=== PATIENT | female | born 1985 | race Caucasian/White ===

== ENCOUNTER → 2016-04-13 | Outpatient (REF) | payer OTHER | LOC: M SFHCCLAY 09:07 | PROVIDERS: ATTEND Family Medicine | DX: N30.00 Acute cystitis without hematuria (principal) ==

== ENCOUNTER 2016-05-02 12:32 | Emergency (ER) | payer OTHER ==
[2016-05-02 14:13] LABS: BASO % 0.3 % (0.0-1.0); EOS % 0.9 % (0.0-3.0); LARGE UNSTAINED CELL # 0.1 K/mm3 (0.0-0.4); LARGE UNSTAINED CELL % 1.6 % (0.0-4.0); LYMPH # 1.4 K/mm3 (1.5-4.5); MEAN CORPUSCULAR HEMOGLOBIN 32.6 pg (27.0-33.0); MEAN CORPUSCULAR HGB CONC 34.8 g/dl (32.0-36.5); MEAN CORPUSCULAR VOLUME 93.6 fl (80.0-96.0); MONO # 0.3 K/mm3 (0.0-0.8); MONO % 4.7 % (0.0-5.0); NEUTROPHILS # 4.3 K/mm3 (1.8-7.7); NEUTROPHILS % 70.5 % (36.0-66.0); PLATELET COUNT, AUTOMATED 295 k/mm3 (150-450); RED CELL DISTRIBUTION WIDTH 13.4 % (11.5-14.5)
[2016-05-02 14:23] LABS: ANION GAP 8 MEQ/L (8-16); BLOOD UREA NITROGEN 6 MG/DL (7-18); CALCIUM LEVEL 8.3 MG/DL (8.5-10.1); CARBON DIOXIDE LEVEL 25 MEQ/L (21-32); CHLORIDE LEVEL 108 MEQ/L (98-107); CREATININE FOR GFR 0.53 MG/DL (0.55-1.02); GLOMERULAR FILTRATION RATE > 60.0 (>60); GLUCOSE, FASTING 85 MG/DL (70-105); POTASSIUM SERUM 3.9 MEQ/L (3.5-5.1); SODIUM LEVEL 141 MEQ/L (136-145)
--- NOTE | 2016-05-02 14:44 | REP ---
URINARY TRACT SONOGRAPHY: HISTORY: 15 weeks gestation. History of pyelonephritis. Renal colic. FINDINGS: Scanning at the level of the urinary bladder shows that it is not filled. No bladder abnormality. Renal cortical echogenicity pattern is normal and renal contours are smooth on both sides. No hydronephrosis is seen on either side. Doppler resistive indices are normal in each kidney of 0.60 on the right and 0.64 on the left. Right renal dimensions are 10.1 x 4.8 x 4.8 cm. Left kidney measures 11.2 x 5.3 x 4.6 cm. heart rate is recorded at 153 beats per minute. IMPRESSION: No hydronephrosis seen. Kidneys morphologically intact by ultrasound. Signed by Francisco Reynoso MD 05/02/2016 02:57 P
--- NOTE | 2016-05-02 16:14 | EDDOCDS ---
Physician Documentation [facility] Name: Ruth Damico Age: 30 yrs Sex: Female : 1985 Arrival Date: 05/02/2016 Time: 12:32 Bed 13 Private MD: David Roche W Disposition: 05/02 15:56 Critical Care: Critical care not applicable. le Disposition: 05/02/16 15:53 Discharged to Home/Self Care. Impression: Abdominal and pelvic pain. - Condition is Stable. - Discharge Instructions: Abdominal Pain During , Second Trimester of , [id number]. - Medication Reconciliation, Local Pharmacy Hours form. - Follow up: Your Chief Meteorologist; When: Call to arrange an appointment; Reason: Recheck today's complaints, Continuance of care. - Problem is an acute exacerbation. - Symptoms have improved. - Notes: Keep hydrated Return to the ED for any further concerns Historical: - Allergies: Amoxicillin (Upset stomach); - Home Meds: 1. Synthroid 50 mcg Oral tab 1 tab once daily (Last dose: 05/02/2016 08:00) 2. Vitamin Oral tab 1 tab nightly (Last dose: 05/01/2016) 3. Prevacid 15 mg Oral cpDR 1 cap nightly (Last dose: 05/01/2016) 4. cetirizine 10 mg oral cap nightly (Last dose: 05/01/2016) - PMHx: Seasonal Allergies; GERD; Hypothyroidism; - PSHx: none; - Social history: Smoking status: Patient states was never smoker of tobacco. No barriers to communication noted, The patient speaks fluent Maldivian. - Family history: Not pertinent. - : The pt / caregiver states he / she is not on anticoagulants. Home medication list is obtained from the patient. - Exposure Risk Screening:: None identified. 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 6 in. (167.64 cm) (R); Pain 6/10; 16:11 BP 122 / 58; Pulse 88; Resp 16; Temp 98.1; Pulse Ox 98% ; ld5 12:34 Body Mass Index 25.02 (70.31 kg, 167.64 cm) gr2 MDM: 13:13 Heart Tones ordered. sd1 13:14 UA Ordered. EDMS 13:14 Urine Culture Ordered. EDMS 13:39 IV Saline Lock ordered. le 13:39 NS 0.9% 1000 ml IV at bolus once ordered. le 13:40 CBC with Diff Ordered. EDMS 13:40 BMP Ordered. EDMS 13:41 US Renal Ordered. EDMS 14:03 Financial registration complete. lg 14:25 [facility] Payment Agreement was scanned into [employer] and attached to record. lg 14:37 CBC with Diff Reviewed. le 14:37 BMP Reviewed. le 15:36 UA Reviewed. le Administered Medications: 14:00 Drug: NS 0.9% 1000 ml [sodium chloride 0.9 % injection solution] Route: IV; Rate: jf3 bolus; Site: left antecubital; 16:13 Follow up: IV Status: Completed infusion; IV Intake: 1000ml ld5 Signatures: Dispatcher [employer] EDMS Radha Schulte MD MD sd1 Kayla Traylor, RN RN Choco Horowitz, Reg Reg lg Ruth Nolasco, KNOT SAW OPERATOR Jahaira Mccollum RN RN ld5 Shaq Penaloza RN jf3 The chart was reviewed and I authenticate all verbal orders and agree with the evaluation and treatment provided.Attachments: 14:25 [facility] Payment Agreement lg MTDD
--- NOTE | 2016-05-02 16:14 | EDDOCDS ---
Nurse's Notes [facility] Name: Ruth Damico Age: 30 yrs Sex: Female : 1985 Arrival Date: 05/02/2016 Time: 12:32 Bed 13 Private MD: David Roche W Diagnosis: Abdominal and pelvic pain Presentation: 05/02 12:44 Presenting complaint: Patient states: pelvic and lower back pain since 0600. 15 weeks [facility] with twins , finished antibiotic for UTI 2 weeks ago, history of pyelonephritis. Adult Sepsis Screening: The patient does not have new or worsening altered mentation. Patient's respiratory rate is less than 22. Systolic blood pressure is greater than 100. Patient has a qSOFA score of 0- Negative Sepsis Screen. Suicide/Homicide risk assessment- the patient denies having any suicidal and/or homicidal ideations and does not present with any other emotional, behavioral or mental health complaints. Status: The patient is a dependent. Transition of care: patient was not received from another setting of care. 12:44 Acuity: CHRISTOPHE Level 3 [facility] 12:44 Method Of Arrival: Walkin/Carried/Asstd [facility] Triage Assessment: 12:49 General: Appears well nourished, well groomed, Behavior is appropriate for age, kpj pleasant. Pain: Location: left flank Pain currently is 4 out of 10 on a pain scale. Pain radiates to left lower quadrant Quality of pain is described as sharp. Pt Declines HIV testing. Neurological: Level of Consciousness is awake, alert, Oriented to person, place, time. Respiratory: Airway is patent Respiratory effort is even, unlabored, Respiratory pattern is regular, symmetrical. GI: Reports nausea. : Reports pain in left flank(s) Pain is 4 out of 10 on a pain scale. Denies vaginal bleeding. Derm: Skin is pink, warm & dry. 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 Synthroid 50 mcg Oral tab 1 tab once daily (Last dose: 05/02/2016 08:00) 2. Vitamin Oral tab 1 tab nightly (Last dose: 05/01/2016) 3. Prevacid 15 mg Oral cpDR 1 cap nightly (Last dose: 05/01/2016) 4. cetirizine 10 mg oral cap nightly (Last dose: 05/01/2016) - PMHx: Seasonal Allergies; GERD; Hypothyroidism; - PSHx: none; - Social history: Smoking status: Patient states was never smoker of tobacco. No barriers to communication noted, The patient speaks fluent Hungarian. - Family history: Not pertinent. - : The pt / caregiver states he / she is not on anticoagulants. Home medication list is obtained from the patient. - Exposure Risk Screening:: None identified. Screenin:11 Screening information is obtained from the patient. Fall risk: No risks identified. ld5 Assistance ADL's: requires no assistance with activities of daily living. Abuse/DV Screen: The patient / caregiver reports he/she is: not in a situation that causes fear, pain or injury. Nutritional screening: No deficits noted. Advance Directives: There is no active DNR order. home support is adequate. Assessment: 13:31 Adult Sepsis Screening: The patient does not have new or worsening altered mentation. dsf Patient's respiratory rate is less than 22. Systolic blood pressure is greater than 100. Patient has a qSOFA score of 0- Negative Sepsis Screen. General: Appears in no apparent distress, Behavior is appropriate for age, cooperative. Pain: Location: left flank Pain currently is 4 out of 10 on a pain scale. Pain radiates to pelvis Quality of pain is described as aching. Neurological: Level of Consciousness is awake, alert, Oriented to person, place, time. Cardiovascular: Capillary refill < 3 seconds Heart tones S1 S2 present. Respiratory: Airway is patent Respiratory effort is even, unlabored, Respiratory pattern is regular, symmetrical, Breath sounds are clear bilaterally. GI: Abdomen is non- distended gravid Bowel sounds present X 4 quads. Abd is soft X 4 quads Abd is tender to palpation in right lower quadrant and left lower quadrant Denies nausea. Derm: Skin is pink, warm & dry. 14:04 General: Appears in no apparent distress, Behavior is appropriate for age, cooperative. dsf Neurological: Level of Consciousness is awake, alert. Cardiovascular: Capillary refill < 3 seconds. Respiratory: Airway is patent Respiratory effort is even, unlabored, Respiratory pattern is regular, symmetrical. Derm: Skin is pink, warm & dry. 15:06 Adult Sepsis Screening: The patient does not have new or worsening altered mentation. dsf Patient's respiratory rate is less than 22. Systolic blood pressure is greater than 100. Patient has a qSOFA score of 0- Negative Sepsis Screen. General: Appears in no apparent distress, comfortable, Behavior is appropriate for age, cooperative. Pain: Location: left flank Pain currently is 2 out of 10 on a pain scale. Pain radiates to pelvis. Neurological: Level of Consciousness is awake, alert, Oriented to person, place, time. Cardiovascular: Capillary refill < 3 seconds Heart tones S1 S2 present. Respiratory: Airway is patent Respiratory effort is even, unlabored, Respiratory pattern is regular, symmetrical, Breath sounds are clear bilaterally. GI: Abdomen is non- distended gravid Bowel sounds present X 4 quads. Abd is soft X 4 quads Abd is tender to palpation in right lower quadrant and left lower quadrant Denies nausea. Derm: Skin is pink, warm & dry. 16:11 General: Appears in no apparent distress, Behavior is cooperative. Pain: Denies pain. ld5 Neurological: Level of Consciousness is awake, alert. Respiratory: Airway is patent Respiratory effort is even, unlabored. GI: Denies nausea. Vital Signs: 12:34 BP 128 / 61; Pulse 90; Resp 18 S; Temp 98.2(O); Pulse Ox 98% on R/A; Weight 70.31 kg gr2 (R); Height 5 ft. 6 in. (167.64 cm) (R); Pain 6/10; 16:11 BP 122 / 58; Pulse 88; Resp 16; Temp 98.1; Pulse Ox 98% ; ld5 12:34 Body Mass Index 25.02 (70.31 kg, 167.64 cm) gr2 Vitals: 12:34 Log In Time: May 02, 2016 at 12:34. gr2 13:31 Heart Tones 151BPM. f ED Course: 12:33 Patient visited by Phillip Keenan. gr2 12:33 David Roche is Private Physician. gr2 12:33 Patient moved to Waiting gr2 12:35 Patient visited by Phillip Keenan. gr2 12:35 Patient moved to Pre RCE gr2 12:46 Triage Initiated kpj 13:23 Patient moved to 13 dem1 13:25 [facility] 13:32 Patient visited by Cristine Carrillo RN. dsf 13:32 Patient visited by Ruth Nolasco FNP. le 13:32 Patient visited by Ruth Nolasco FNP. le 14:00 BMP Sent. jf3 14:00 CBC with Diff Sent. jf3 14:00 Inserted saline lock: 20 gauge in left antecubital area The patient tolerated the jf3 procedure well. 14:05 Patient visited by Cristine Carrillo RN. dsf 14:13 Patient moved to Ultrasound am17 14:24 Patient name changed from Ruth\S\\S\Mookie\S\ to Ruth\S\Zahra\S\Mookie. EDMS 14:25 Patient moved to 13 am17 14:25 [facility] Payment Agreement was scanned into [employer] and attached to record. lg 14:48 Urine Culture Sent. nb2 14:48 UA Sent. nb2 15:07 Patient visited by Cristine Carrillo RN. dsf 15:25 US Renal Returned. EDMS 15:53 Your Stave Grader is Referral Physician. le 16:11 The patient / caregiver is instructed regarding the plan of care and ED course. ld5 16:11 Discontinued lock intact, bleeding controlled, pressure dressing applied, No ld5 redness/swelling at site. No procedures done that require assistance. 16:13 Patient visited by Jahaira Champion RN. ld5 Administered Medications: 14:00 Drug: NS 0.9% 1000 ml [sodium chloride 0.9 % injection solution] Route: IV; Rate: jf3 bolus; Site: left antecubital; 16:13 Follow up: IV Status: Completed infusion; IV Intake: 1000ml ld5 Intake: 16:13 IV: 1000.00ml; Total: 1000.00ml. ld5 Order Results: Lab Order: UA; SPEC'M 05/02/16 14:45 Test: APPEARANCE, URINE; Value: CLOUDY; Range: CLEAR; Abnormal: Above high normal; Status: F Test: COLOR, URINE; Value: YELLOW; Range: YELLOW; Status: F Test: PH,URINE; Value: 8.0; Range: 5.0-9.0; Units: UNITS; Status: F Test: SPECIFIC GRAVITY URINE AUTO; Value: 1.008; Range: 1.002-1.035; Status: F Test: PROTEIN, URINE AUTO; Value: NEGATIVE; Range: NEGATIVE; Units: mg/dL; Status: F Test: GLUCOSE, URINE (UA) AUTO; Value: NEGATIVE; Range: NEGATIVE; Units: mg/dL; Status: F Test: KETONE, URINE AUTO; Value: NEGATIVE; Range: NEGATIVE; Units: mg/dL; Status: F Test: UROBILINOGEN, URINE AUTO; Value: 0.2; Range: 0.0-2.0; Units: mg/dL; Status: F Test: BILIRUBIN, URINE AUTO; Value: NEGATIVE; Range: NEGATIVE; Status: F Test: NITRITE, URINE AUTO; Value: NEGATIVE; Range: NEGATIVE; Status: F Test: LEUKOCYTE ESTERASE, URINE AUTO; Value: NEGATIVE; Range: NEGATIVE; Status: F Test: BLOOD, URINE BLOOD; Value: NEGATIVE; Range: NEGATIVE; Status: F Test: WBC, URINE AUTO; Value: 1; Range: 0-3; Units: /HPF; Status: F Test: RBC, URINE AUTO; Value: 1; Range: 0-3; Units: /HPF; Status: F Test: BACTERIA, URINE AUTO; Value: NEGATIVE; Range: NEGATIVE; Status: F Test: SQUAMOUS EPITHELIAL CELL UR AU; Value: 0; Range: 0-6; Units: /HPF; Status: F Test: MUCUS, URINE; Value: SMALL; Range: NEGATIVE; Status: F Test: HYALINE CAST, URINE AUTO; Value: 0; Range: 0-1; Units: /LPF; Status: F Test: AMORPHOUS SEDIMENT; Value: SMALL; Range: NEGATIVE; Abnormal: Above high normal; Status: F Lab Order: CBC with Diff; SPEC'M 05/02/16 13:56 Test: WHITE BLOOD COUNT; Value: 6.0; Range: 4.0-10.0; Units: K/mm3; Status: F Test: RED BLOOD COUNT; Value: 3.44; Range: 4.00-5.40; Abnormal: Below low normal; Units: M/mm3; Status: F Test: HEMOGLOBIN; Value: 11.2; Range: 12.0-16.0; Abnormal: Below low normal; Units: g/dl; Status: F Test: HEMATOCRIT; Value: 32.2; Range: 36.0-47.0; Abnormal: Below low normal; Units: %; Status: F Test: MEAN CORPUSCULAR VOLUME; Value: 93.6; Range: 80.0-96.0; Units: fl; Status: F Test: MEAN CORPUSCULAR HEMOGLOBIN; Value: 32.6; Range: 27.0-33.0; Units: pg; Status: F Test: MEAN CORPUSCULAR HGB CONC; Value: 34.8; Range: 32.0-36.5; Units: g/dl; Status: F Test: RED CELL DISTRIBUTION WIDTH; Value: 13.4; Range: 11.5-14.5; Units: %; Status: F Test: PLATELET COUNT, AUTOMATED; Value: 295; Range: 150-450; Units: k/mm3; Status: F Test: NEUTROPHILS %; Value: 70.5; Range: 36.0-66.0; Abnormal: Above high normal; Units: %; Status: F Test: LYMPH %; Value: 22.0; Range: 24.0-44.0; Abnormal: Below low normal; Units: %; Status: F Test: MONO %; Value: 4.7; Range: 0.0-5.0; Units: %; Status: F Test: EOS %; Value: 0.9; Range: 0.0-3.0; Units: %; Status: F Test: BASO %; Value: 0.3; Range: 0.0-1.0; Units: %; Status: F Test: LARGE UNSTAINED CELL %; Value: 1.6; Range: 0.0-4.0; Units: %; Status: F Test: NEUTROPHILS #; Value: 4.3; Range: 1.8-7.7; Units: K/mm3; Status: F Test: LYMPH #; Value: 1.4; Range: 1.5-4.5; Abnormal: Below low normal; Units: K/mm3; Status: F Test: MONO #; Value: 0.3; Range: 0.0-0.8; Units: K/mm3; Status: F Test: EOS #; Value: 0.0; Range: 0.0-0.50; Units: K/mm3; Status: F Test: BASO #; Value: 0.0; Range: 0.0-0.2; Units: K/mm3; Status: F Test: LARGE UNSTAINED CELL #; Value: 0.1; Range: 0.0-0.4; Units: K/mm3; Status: F Lab Order: JC CORONA 05/02/16 13:56 Test: GLUCOSE, FASTING; Value: 85; Range: 70-105; Units: MG/DL; Status: F Test: BLOOD UREA NITROGEN; Value: 6; Range: 7-18; Abnormal: Below low normal; Units: MG/DL; Status: F Test: CREATININE FOR GFR; Value: 0.53; Range: 0.55-1.02; Abnormal: Below low normal; Units: MG/DL; Status: F Test: GLOMERULAR FILTRATION RATE; Value: > 60.0; Range: >60; Status: F Test: SODIUM LEVEL; Value: 141; Range: 136-145; Units: MEQ/L; Status: F Test: POTASSIUM SERUM; Value: 3.9; Range: 3.5-5.1; Units: MEQ/L; Status: F Test: CHLORIDE LEVEL; Value: 108; Range: 98-107; Abnormal: Above high normal; Units: MEQ/L; Status: F Test: CARBON DIOXIDE LEVEL; Value: 25; Range: 21-32; Units: MEQ/L; Status: F Test: ANION GAP; Value: 8; Range: 8-16; Units: MEQ/L; Status: F Test: CALCIUM LEVEL; Value: 8.3; Range: 8.5-10.1; Abnormal: Below low normal; Units: MG/DL; Status: F Test Note: ; Units are mL/min/1.73 m2 Chronic Kidney Disease Staging per NKF: Stage I & II GFR >=60 Normal to Mildly Decreased Stage III GFR 30-59 Moderately Decreased Stage IV GFR 15-29 Severely Decreased Stage V GFR <15 Very Little GFR Left ESRD GFR <15 on PUMP ERECTOR HELPER Radiology Order: US Renal Test: US Renal REASON FOR EXAMINATION: hx of pyelo;Renal colic; URINARY TRACT SONOGRAPHY:; ; HISTORY: 15 weeks gestation. History of pyelonephritis. Renal colic.; ; FINDINGS: Scanning at the level of the urinary bladder shows that it is not; filled. No bladder abnormality.; ; Renal cortical echogenicity pattern is normal and renal contours are smooth on; both sides. No hydronephrosis is seen on either side. Doppler resistive indices; are normal in each kidney of 0.60 on the right and 0.64 on the left. Right renal; dimensions are 10.1 x 4.8 x 4.8 cm. Left kidney measures 11.2 x 5.3 x 4.6 cm.; heart rate is recorded at 153 beats per minute.; ; IMPRESSION:; ; No hydronephrosis seen. Kidneys morphologically intact by ultrasound.; ; ; Signed by; Francisco Reynoso MD 05/02/2016 02:57 P; Outcome: 15:53 Discharge ordered by Provider. le 16:11 Discharge Assessment: Patient awake, alert and oriented x 3. No cognitive and/or ld5 functional deficits noted. Patient verbalized understanding of disposition instructions. patient administered narcotics - no. The following High Risk Discharge criteria are identified: None. Discharged to home ambulatory, with significant other. Condition: stable. Discharge instructions given to patient, Instructed on discharge instructions, follow up and referral plans. Demonstrated understanding of instructions, Pt was receptive of discharge instructions/ teaching. Ultrasound Study completed. Property :Personal belongings accompany Pt. 16:13 Patient left the ED. ld5 Signatures: Dispatcher Med[employer] EDMS Kayla Traylor RN RN Choco Greenfield, Reg Reg Ruth Stevens, Jahaira Gonzalez RN RN ld5 Cristine Carrillo RN RN dsf Mack, Demeishia dem1 Phillip Keenan gr2 Candice Zavala am17 Shaq Penaloza RN RN jf3 Jyoti Renee2 Corrections: (The following items were deleted from the chart) 12:53 12:44 Presenting complaint: Patient states: pelvic and lower back pain since 0600. 15 [facility] weeks , finished antibiotic for UTI 2 weeks ago, history of pyelonephritis [facility] MTDD
--- NOTE | 2016-05-04 17:14 | EDDOCDS ---
Physician Documentation [facility] Name: Ruth Damico Age: 30 yrs Sex: Female : 1985 Arrival Date: 05/02/2016 Time: 12:32 Bed 13 Private MD: David Roche W Disposition: 05/02 15:56 Critical Care: Critical care not applicable. le Disposition: 05/02/16 15:53 Discharged to Home/Self Care. Impression: Abdominal and pelvic pain. - Condition is Stable. - Discharge Instructions: Abdominal Pain During , Second Trimester of , [id number]. - Medication Reconciliation, Local Pharmacy Hours form. - Follow up: Your Eradicator; When: Call to arrange an appointment; Reason: Recheck today's complaints, Continuance of care. - Problem is an acute exacerbation. - Symptoms have improved. - Notes: Keep hydrated Return to the ED for any further concerns Historical: - Allergies: Amoxicillin (Upset stomach); - Home Meds: 1. Synthroid 50 mcg Oral tab 1 tab once daily (Last dose: 05/02/2016 08:00) 2. Vitamin Oral tab 1 tab nightly (Last dose: 05/01/2016) 3. Prevacid 15 mg Oral cpDR 1 cap nightly (Last dose: 05/01/2016) 4. cetirizine 10 mg oral cap nightly (Last dose: 05/01/2016) - PMHx: Seasonal Allergies; GERD; Hypothyroidism; - PSHx: none; - Social history: Smoking status: Patient states was never smoker of tobacco. No barriers to communication noted, The patient speaks fluent Bulgarian. - Family history: Not pertinent. - : The pt / caregiver states he / she is not on anticoagulants. Home medication list is obtained from the patient. - Exposure Risk Screening:: None identified. 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 6 in. (167.64 cm) (R); Pain 6/10; 16:11 BP 122 / 58; Pulse 88; Resp 16; Temp 98.1; Pulse Ox 98% ; ld5 12:34 Body Mass Index 25.02 (70.31 kg, 167.64 cm) gr2 MDM: 13:13 Heart Tones ordered. sd1 13:14 UA Ordered. EDMS 13:14 Urine Culture Ordered. EDMS 13:39 IV Saline Lock ordered. le 13:39 NS 0.9% 1000 ml IV at bolus once ordered. le 13:40 CBC with Diff Ordered. EDMS 13:40 BMP Ordered. EDMS 13:41 US Renal Ordered. EDMS 14:03 Financial registration complete. lg 14:25 [facility] Payment Agreement was scanned into [employer] and attached to record. lg 14:37 CBC with Diff Reviewed. le 14:37 BMP Reviewed. le 15:36 UA Reviewed. le 22:08 T-Sheet-- Draft Copy was scanned into [employer] and attached to record. klr Administered Medications: 14:00 Drug: NS 0.9% 1000 ml [sodium chloride 0.9 % injection solution] Route: IV; Rate: jf3 bolus; Site: left antecubital; 16:13 Follow up: IV Status: Completed infusion; IV Intake: 1000ml ld5 Signatures: Dispatcher [employer] Radha Abdul MD MD sd1 Kayla Traylor RN RN Choco Horowitz, Reg Reg lg Ruth Nolasco, Jahaira Gonzalez RN RN ld5 Ignacia Ogden Justin RN jf3 The chart was reviewed and I authenticate all verbal orders and agree with the evaluation and treatment provided.Attachments: 14:25 [facility] Payment Agreement lg 22:08 T-Sheet-- Draft Copy klr Chart Complete MTDD
--- NOTE | 2016-05-04 17:14 | EDDOCDS ---
Physician Documentation [facility] Name: Ruth Damico Age: 30 yrs Sex: Female : 1985 Arrival Date: 05/02/2016 Time: 12:32 Bed 13 Private MD: David Roche W Disposition: 05/02 15:56 Critical Care: Critical care not applicable. le Disposition: 05/02/16 15:53 Discharged to Home/Self Care. Impression: Abdominal and pelvic pain. - Condition is Stable. - Discharge Instructions: Abdominal Pain During , Second Trimester of , Arsu-yf-Ihsi. - Medication Reconciliation, Local Pharmacy Hours form. - Follow up: Your Invoice Control Clerk; When: Call to arrange an appointment; Reason: Recheck today's complaints, Continuance of care. - Problem is an acute exacerbation. - Symptoms have improved. - Notes: Keep hydrated Return to the ED for any further concerns Historical: - Allergies: Amoxicillin (Upset stomach); - Home Meds: 1. Synthroid 50 mcg Oral tab 1 tab once daily (Last dose: 05/02/2016 08:00) 2. Vitamin Oral tab 1 tab nightly (Last dose: 05/01/2016) 3. Prevacid 15 mg Oral cpDR 1 cap nightly (Last dose: 05/01/2016) 4. cetirizine 10 mg oral cap nightly (Last dose: 05/01/2016) - PMHx: Seasonal Allergies; GERD; Hypothyroidism; - PSHx: none; - Social history: Smoking status: Patient states was never smoker of tobacco. No barriers to communication noted, The patient speaks fluent Iranian. - Family history: Not pertinent. - : The pt / caregiver states he / she is not on anticoagulants. Home medication list is obtained from the patient. - Exposure Risk Screening:: None identified. SCAN COORDINATOR: 12:49 1, Full Term 0, Premature 0, 0, Living 0, LMP 01/19/2016, kpj Verified, EDC 10/25/2016, Gestational age from LMP: 14 weeks 6 days Vital Signs: 12:34 BP 128 / 61; Pulse 90; Resp 18 S; Temp 98.2(O); Pulse Ox 98% on R/A; Weight 70.31 kg / gr2 155.01 lbs (R); Height 5 ft. 6 in. (167.64 cm) (R); Pain 6/10; 16:11 BP 122 / 58; Pulse 88; Resp 16; Temp 98.1; Pulse Ox 98% ; ld5 12:34 Body Mass Index 25.02 (70.31 kg, 167.64 cm) gr2 MDM: 13:13 Heart Tones ordered. sd1 13:14 UA Ordered. EDMS 13:14 Urine Culture Ordered. EDMS 13:39 IV Saline Lock ordered. le 13:39 NS 0.9% 1000 ml IV at bolus once ordered. le 13:40 CBC with Diff Ordered. EDMS 13:40 BMP Ordered. EDMS 13:41 US Renal Ordered. EDMS 14:03 Financial registration complete. lg 14:25 [facility] Payment Agreement was scanned into [employer] and attached to record. lg 14:37 CBC with Diff Reviewed. le 14:37 BMP Reviewed. le 15:36 UA Reviewed. le 22:08 T-Sheet-- Draft Copy was scanned into [employer] and attached to record. klr Administered Medications: 14:00 Drug: NS 0.9% 1000 ml [sodium chloride 0.9 % injection solution] Route: IV; Rate: jf3 bolus; Site: left antecubital; 16:13 Follow up: IV Status: Completed infusion; IV Intake: 1000ml ld5 Signatures: Dispatcher [employer] Radha Abdul MD MD sd1 Kayla Traylor RN RN Choco Horowitz, Reg Reg lg Ruth Nolasco, Jahaira Gonzalez RN RN ld5 Ignacia Ogden Justin RN jf3 The chart was reviewed and I authenticate all verbal orders and agree with the evaluation and treatment provided.Attachments: 14:25 [facility] Payment Agreement lg 22:08 T-Sheet-- Draft Copy klr Chart Complete MTDD
--- NOTE | 2016-05-04 17:14 | EDDOCDS ---
Nurse's Notes Name: Ruth Damico Age: 30 yrs Sex: Female : 1985 Arrival Date: 05/02/2016 Time: 12:32 Bed 13 Private MD: David Roche W Diagnosis: Abdominal and pelvic pain Presentation: 05/02 12:44 Presenting complaint: Patient states: pelvic and lower back pain since 0600. 15 weeks [facility] with twins , finished antibiotic for UTI 2 weeks ago, history of pyelonephritis. Adult Sepsis Screening: The patient does not have new or worsening altered mentation. Patient's respiratory rate is less than 22. Systolic blood pressure is greater than 100. Patient has a qSOFA score of 0- Negative Sepsis Screen. Suicide/Homicide risk assessment- the patient denies having any suicidal and/or homicidal ideations and does not present with any other emotional, behavioral or mental health complaints. Status: The patient is a dependent. Transition of care: patient was not received from another setting of care. 12:44 Acuity: CHRISTOPHE Level 3 [facility] 12:44 Method Of Arrival: Walkin/Carried/[facility] Triage Assessment: 12:49 General: Appears well nourished, well groomed, Behavior is appropriate for age, kpj pleasant. Pain: Location: left flank Pain currently is 4 out of 10 on a pain scale. Pain radiates to left lower quadrant Quality of pain is described as sharp. Pt Declines HIV testing. Neurological: Level of Consciousness is awake, alert, Oriented to person, place, time. Respiratory: Airway is patent Respiratory effort is even, unlabored, Respiratory pattern is regular, symmetrical. GI: Reports nausea. : Reports pain in left flank(s) Pain is 4 out of 10 on a pain scale. Denies vaginal bleeding. Derm: Skin is pink, warm & dry. 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 Synthroid 50 mcg Oral tab 1 tab once daily (Last dose: 05/02/2016 08:00) 2. Vitamin Oral tab 1 tab nightly (Last dose: 05/01/2016) 3. Prevacid 15 mg Oral cpDR 1 cap nightly (Last dose: 05/01/2016) 4. cetirizine 10 mg oral cap nightly (Last dose: 05/01/2016) - PMHx: Seasonal Allergies; GERD; Hypothyroidism; - PSHx: none; - Social history: Smoking status: Patient states was never smoker of tobacco. No barriers to communication noted, The patient speaks fluent Romanian. - Family history: Not pertinent. - : The pt / caregiver states he / she is not on anticoagulants. Home medication list is obtained from the patient. - Exposure Risk Screening:: None identified. Screenin:11 Screening information is obtained from the patient. Fall risk: No risks identified. ld5 Assistance ADL's: requires no assistance with activities of daily living. Abuse/DV Screen: The patient / caregiver reports he/she is: not in a situation that causes fear, pain or injury. Nutritional screening: No deficits noted. Advance Directives: There is no active DNR order. home support is adequate. Assessment: 13:31 Adult Sepsis Screening: The patient does not have new or worsening altered mentation. dsf Patient's respiratory rate is less than 22. Systolic blood pressure is greater than 100. Patient has a qSOFA score of 0- Negative Sepsis Screen. General: Appears in no apparent distress, Behavior is appropriate for age, cooperative. Pain: Location: left flank Pain currently is 4 out of 10 on a pain scale. Pain radiates to pelvis Quality of pain is described as aching. Neurological: Level of Consciousness is awake, alert, Oriented to person, place, time. Cardiovascular: Capillary refill < 3 seconds Heart tones S1 S2 present. Respiratory: Airway is patent Respiratory effort is even, unlabored, Respiratory pattern is regular, symmetrical, Breath sounds are clear bilaterally. GI: Abdomen is non- distended gravid Bowel sounds present X 4 quads. Abd is soft X 4 quads Abd is tender to palpation in right lower quadrant and left lower quadrant Denies nausea. Derm: Skin is pink, warm & dry. 14:04 General: Appears in no apparent distress, Behavior is appropriate for age, cooperative. dsf Neurological: Level of Consciousness is awake, alert. Cardiovascular: Capillary refill < 3 seconds. Respiratory: Airway is patent Respiratory effort is even, unlabored, Respiratory pattern is regular, symmetrical. Derm: Skin is pink, warm & dry. 15:06 Adult Sepsis Screening: The patient does not have new or worsening altered mentation. dsf Patient's respiratory rate is less than 22. Systolic blood pressure is greater than 100. Patient has a qSOFA score of 0- Negative Sepsis Screen. General: Appears in no apparent distress, comfortable, Behavior is appropriate for age, cooperative. Pain: Location: left flank Pain currently is 2 out of 10 on a pain scale. Pain radiates to pelvis. Neurological: Level of Consciousness is awake, alert, Oriented to person, place, time. Cardiovascular: Capillary refill < 3 seconds Heart tones S1 S2 present. Respiratory: Airway is patent Respiratory effort is even, unlabored, Respiratory pattern is regular, symmetrical, Breath sounds are clear bilaterally. GI: Abdomen is non- distended gravid Bowel sounds present X 4 quads. Abd is soft X 4 quads Abd is tender to palpation in right lower quadrant and left lower quadrant Denies nausea. Derm: Skin is pink, warm & dry. 16:11 General: Appears in no apparent distress, Behavior is cooperative. Pain: Denies pain. ld5 Neurological: Level of Consciousness is awake, alert. Respiratory: Airway is patent Respiratory effort is even, unlabored. GI: Denies nausea. Vital Signs: 12:34 BP 128 / 61; Pulse 90; Resp 18 S; Temp 98.2(O); Pulse Ox 98% on R/A; Weight 70.31 kg gr2 (R); Height 5 ft. 6 in. (167.64 cm) (R); Pain 6/10; 16:11 BP 122 / 58; Pulse 88; Resp 16; Temp 98.1; Pulse Ox 98% ; ld5 12:34 Body Mass Index 25.02 (70.31 kg, 167.64 cm) gr2 Vitals: 12:34 Log In Time: May 02, 2016 at 12:34. gr2 13:31 Heart Tones 151BPM. f ED Course: 12:33 Patient visited by Phillip Keenan. gr2 12:33 David Roche is Private Physician. gr2 12:33 Patient moved to Waiting gr2 12:35 Patient visited by Phillip Keenan. gr2 12:35 Patient moved to Pre RCE gr2 12:46 Triage Initiated kpj 13:23 Patient moved to 13 dem1 13:25 [facility] le 13:32 Patient visited by Cristine Carrillo RN. dsf 13:32 Patient visited by Ruth Nolasco FNP. le 13:32 Patient visited by Ruth Nolasco FNP. le 14:00 BMP Sent. jf3 14:00 CBC with Diff Sent. jf3 14:00 Inserted saline lock: 20 gauge in left antecubital area The patient tolerated the jf3 procedure well. 14:05 Patient visited by Cristine Carrillo RN. dsf 14:13 Patient moved to Ultrasound am17 14:24 Patient name changed from Ruth\S\\S\Mookie\S\ to Ruth\S\Zahra\S\Mookie. EDMS 14:25 Patient moved to 13 am17 14:25 [facility] Payment Agreement was scanned into [employer] and attached to record. lg 14:48 Urine Culture Sent. nb2 14:48 UA Sent. nb2 15:07 Patient visited by Cristine Carrillo RN. dsf 15:25 US Renal Returned. EDMS 15:53 Your Emergency Department Clinician is Referral Physician. le 16:11 The patient / caregiver is instructed regarding the plan of care and ED course. ld5 16:11 Discontinued lock intact, bleeding controlled, pressure dressing applied, No ld5 redness/swelling at site. No procedures done that require assistance. 16:13 Patient visited by Jahaira Champion RN. ld5 22:08 T-Sheet-- Draft Copy was scanned into [employer] and attached to record. klr Administered Medications: 14:00 Drug: NS 0.9% 1000 ml [sodium chloride 0.9 % injection solution] Route: IV; Rate: jf3 bolus; Site: left antecubital; 16:13 Follow up: IV Status: Completed infusion; IV Intake: 1000ml ld5 Intake: 16:13 IV: 1000.00ml; Total: 1000.00ml. ld5 Order Results: Lab Order: UA; SPEC'M 05/02/16 14:45 Test: APPEARANCE, URINE; Value: CLOUDY; Range: CLEAR; Abnormal: Above high normal; Status: F Test: COLOR, URINE; Value: YELLOW; Range: YELLOW; Status: F Test: PH,URINE; Value: 8.0; Range: 5.0-9.0; Units: UNITS; Status: F Test: SPECIFIC GRAVITY URINE AUTO; Value: 1.008; Range: 1.002-1.035; Status: F Test: PROTEIN, URINE AUTO; Value: NEGATIVE; Range: NEGATIVE; Units: mg/dL; Status: F Test: GLUCOSE, URINE (UA) AUTO; Value: NEGATIVE; Range: NEGATIVE; Units: mg/dL; Status: F Test: KETONE, URINE AUTO; Value: NEGATIVE; Range: NEGATIVE; Units: mg/dL; Status: F Test: UROBILINOGEN, URINE AUTO; Value: 0.2; Range: 0.0-2.0; Units: mg/dL; Status: F Test: BILIRUBIN, URINE AUTO; Value: NEGATIVE; Range: NEGATIVE; Status: F Test: NITRITE, URINE AUTO; Value: NEGATIVE; Range: NEGATIVE; Status: F Test: LEUKOCYTE ESTERASE, URINE AUTO; Value: NEGATIVE; Range: NEGATIVE; Status: F Test: BLOOD, URINE BLOOD; Value: NEGATIVE; Range: NEGATIVE; Status: F Test: WBC, URINE AUTO; Value: 1; Range: 0-3; Units: /HPF; Status: F Test: RBC, URINE AUTO; Value: 1; Range: 0-3; Units: /HPF; Status: F Test: BACTERIA, URINE AUTO; Value: NEGATIVE; Range: NEGATIVE; Status: F Test: SQUAMOUS EPITHELIAL CELL UR AU; Value: 0; Range: 0-6; Units: /HPF; Status: F Test: MUCUS, URINE; Value: SMALL; Range: NEGATIVE; Status: F Test: HYALINE CAST, URINE AUTO; Value: 0; Range: 0-1; Units: /LPF; Status: F Test: AMORPHOUS SEDIMENT; Value: SMALL; Range: NEGATIVE; Abnormal: Above high normal; Status: F Lab Order: Urine Culture; SPEC'M 05/02/16 14:45 Test: URINE CULTURE; Value: <EXTERNAL COMMENT eCWMed> FULL REPORT IN LAB NOTES (eCW and Medent).; Status: F Test: URINE CULTURE; Value: URINE CULTURE RESULT NO GROWTH CLINICAL SIGNIFICANCE 1 ORGANISM; Status: F Lab Order: CBC with Diff; SPEC'M 05/02/16 13:56 Test: WHITE BLOOD COUNT; Value: 6.0; Range: 4.0-10.0; Units: K/mm3; Status: F Test: RED BLOOD COUNT; Value: 3.44; Range: 4.00-5.40; Abnormal: Below low normal; Units: M/mm3; Status: F Test: HEMOGLOBIN; Value: 11.2; Range: 12.0-16.0; Abnormal: Below low normal; Units: g/dl; Status: F Test: HEMATOCRIT; Value: 32.2; Range: 36.0-47.0; Abnormal: Below low normal; Units: %; Status: F Test: MEAN CORPUSCULAR VOLUME; Value: 93.6; Range: 80.0-96.0; Units: fl; Status: F Test: MEAN CORPUSCULAR HEMOGLOBIN; Value: 32.6; Range: 27.0-33.0; Units: pg; Status: F Test: MEAN CORPUSCULAR HGB CONC; Value: 34.8; Range: 32.0-36.5; Units: g/dl; Status: F Test: RED CELL DISTRIBUTION WIDTH; Value: 13.4; Range: 11.5-14.5; Units: %; Status: F Test: PLATELET COUNT, AUTOMATED; Value: 295; Range: 150-450; Units: k/mm3; Status: F Test: NEUTROPHILS %; Value: 70.5; Range: 36.0-66.0; Abnormal: Above high normal; Units: %; Status: F Test: LYMPH %; Value: 22.0; Range: 24.0-44.0; Abnormal: Below low normal; Units: %; Status: F Test: MONO %; Value: 4.7; Range: 0.0-5.0; Units: %; Status: F Test: EOS %; Value: 0.9; Range: 0.0-3.0; Units: %; Status: F Test: BASO %; Value: 0.3; Range: 0.0-1.0; Units: %; Status: F Test: LARGE UNSTAINED CELL %; Value: 1.6; Range: 0.0-4.0; Units: %; Status: F Test: NEUTROPHILS #; Value: 4.3; Range: 1.8-7.7; Units: K/mm3; Status: F Test: LYMPH #; Value: 1.4; Range: 1.5-4.5; Abnormal: Below low normal; Units: K/mm3; Status: F Test: MONO #; Value: 0.3; Range: 0.0-0.8; Units: K/mm3; Status: F Test: EOS #; Value: 0.0; Range: 0.0-0.50; Units: K/mm3; Status: F Test: BASO #; Value: 0.0; Range: 0.0-0.2; Units: K/mm3; Status: F Test: LARGE UNSTAINED CELL #; Value: 0.1; Range: 0.0-0.4; Units: K/mm3; Status: F Lab Order: [facility]; SPEC'M 05/02/16 13:56 Test: GLUCOSE, FASTING; Value: 85; Range: 70-105; Units: MG/DL; Status: F Test: BLOOD UREA NITROGEN; Value: 6; Range: 7-18; Abnormal: Below low normal; Units: MG/DL; Status: F Test: CREATININE FOR GFR; Value: 0.53; Range: 0.55-1.02; Abnormal: Below low normal; Units: MG/DL; Status: F Test: GLOMERULAR FILTRATION RATE; Value: > 60.0; Range: >60; Status: F Test: SODIUM LEVEL; Value: 141; Range: 136-145; Units: MEQ/L; Status: F Test: POTASSIUM SERUM; Value: 3.9; Range: 3.5-5.1; Units: MEQ/L; Status: F Test: CHLORIDE LEVEL; Value: 108; Range: 98-107; Abnormal: Above high normal; Units: MEQ/L; Status: F Test: CARBON DIOXIDE LEVEL; Value: 25; Range: 21-32; Units: MEQ/L; Status: F Test: ANION GAP; Value: 8; Range: 8-16; Units: MEQ/L; Status: F Test: CALCIUM LEVEL; Value: 8.3; Range: 8.5-10.1; Abnormal: Below low normal; Units: MG/DL; Status: F Test Note: ; Units are mL/min/1.73 m2 Chronic Kidney Disease Staging per NKF: Stage I & II GFR >=60 Normal to Mildly Decreased Stage III GFR 30-59 Moderately Decreased Stage IV GFR 15-29 Severely Decreased Stage V GFR <15 Very Little GFR Left ESRD GFR <15 on BIZTALK CONSULTANT Radiology Order: US Renal Test: US Renal REASON FOR EXAMINATION: hx of pyelo;Renal colic; URINARY TRACT SONOGRAPHY:; ; HISTORY: 15 weeks gestation. History of pyelonephritis. Renal colic.; ; FINDINGS: Scanning at the level of the urinary bladder shows that it is not; filled. No bladder abnormality.; ; Renal cortical echogenicity pattern is normal and renal contours are smooth on; both sides. No hydronephrosis is seen on either side. Doppler resistive indices; are normal in each kidney of 0.60 on the right and 0.64 on the left. Right renal; dimensions are 10.1 x 4.8 x 4.8 cm. Left kidney measures 11.2 x 5.3 x 4.6 cm.; heart rate is recorded at 153 beats per minute.; ; IMPRESSION:; ; No hydronephrosis seen. Kidneys morphologically intact by ultrasound.; ; ; Signed by; Francisco Reynoso MD 05/02/2016 02:57 P; Outcome: 15:53 Discharge ordered by Provider. le 16:11 Discharge Assessment: Patient awake, alert and oriented x 3. No cognitive and/or ld5 functional deficits noted. Patient verbalized understanding of disposition instructions. patient administered narcotics - no. The following High Risk Discharge criteria are identified: None. Discharged to home ambulatory, with significant other. Condition: stable. Discharge instructions given to patient, Instructed on discharge instructions, follow up and referral plans. Demonstrated understanding of instructions, Pt was receptive of discharge instructions/ teaching. Ultrasound Study completed. Property :Personal belongings accompany Pt. 16:13 Patient left the ED. ld5 Signatures: Dispatcher [employer] EDCA Kayla Traylor RN [place] [facility] Choco Campbell, Reg Reg lg Ruth Nolasco, AUDITING MANAGER AUDITING MANAGER Jahaira Mitchell RN RN ld5 Cristine Carrillo RN RN Kiera Miller1 Phillip Keenan gr2 Candice Zavala am17 Shaq Penaloza,[place] RN jf3 Ignacia Ogden Nicole nb2 Corrections: (The following items were deleted from the chart) 12:53 12:44 Presenting complaint: Patient states: pelvic and lower back pain since 0600. 15 [facility] weeks , finished antibiotic for UTI 2 weeks ago, history of pyelonephritis kpj Chart Complete MTDD
== END 2016-05-02 16:13 | disposition home or self-care (01) ==
LOC: M ED 12:32
DX: R10.9 Unspecified abdominal pain (principal); J30.9 Allergic rhinitis, unspecified; K21.9 Gastro-esophageal reflux disease without esophagitis; E03.9 Hypothyroidism, unspecified; Z79.899 Other long term (current) drug therapy; Z88.1 Allergy status to other antibiotic agents; Z3A.15 15 weeks gestation of pregnancy